=== PATIENT | female | born 1935 | race Caucasian/White ===

== ENCOUNTER 2016-10-22 18:12 | Emergency (ER) | payer MEDICARE ==
[~2016-10-22] VITALS: Ht 157.5 cm; Wt 70.3 kg
[2016-10-22 18:37] VITALS: BP 130/84; PULSE 62; RESP 12; TEMP 98.1; O2SAT 99
[2016-10-22] MEDS ORDERED: NACL 0.9% 1,000 ML IV ONE (18:37)
--- NOTE | 2016-10-22 18:55 | NUR ---
pt. placed in bed 5, assumed care
--- NOTE | 2016-10-22 19:00 | NUR ---
Dr. Coyne at bedside examining the pt.
--- NOTE | 2016-10-22 19:10 | NUR ---
Pt. to the ER via BLS for contipation for 2 days and abdominal pain 04/19, as per EMT pt. has a Hx of TIA, Parkinson's, lungs clear on auscultation, vitals WNL, Pulses WNL, soft abdomen, cap refil < 3 secs on all extremities, on campaign coordinator
[2016-10-22 19:20] LABS: BASOPHILS % (AUTO) 0.3 % (0.0-2.0); EOSINOPHILS # (AUTO) 0.1 K/uL (0.0-0.4); EOSINOPHILS % (AUTO) 0.8 % (0.0-4.0); HEMOGLOBIN 13.3 g/dL (12.0-16.0); LYMPHOCYTES # (AUTO) 1.1 K/uL (1.0-5.5); LYMPHOCYTES % (AUTO) 12.5 % (20.5-51.5); MEAN CORPUSCULAR HEMOGLOBIN 31 pg (27-31); MEAN CORPUSCULAR HGB CONC 35 % (32-36); MEAN CORPUSCULAR VOLUME 89 fL (79.0-98.0); MONOCYTES # (AUTO) 0.5 K/uL (0.0-1.0); MONOCYTES % (AUTO) 5.9 % (1.7-9.3); NEUTROPHILS # (AUTO) 7.1 K/uL (1.8-7.7); NEUTROPHILS % (AUTO) 80.5 % (40.0-70.0); PLATELET COUNT (AUTO) 261 K/uL (130-430); RED BLOOD CELL COUNT(AUTO) 4.27 MIL/uL (4.2-6.2); RED CELL DISTRIBUTION WIDTH 13.4 % (9.0-15.0); WHITE BLOOD COUNT (AUTO) 8.8 K/uL (4.8-10.8)
[2016-10-22 19:25] LABS: ANION GAP 11 (5-15); CHLORIDE 102 mmol/L (98-107); CREATININE 0.89 mg/dL (0.55-1.30); GLUCOSE 127 mg/dL (70-99); POTASSIUM 3.6 mmol/L (3.5-5.1); SODIUM SERUM 136 mmol/L (136-145); UREA NITROGEN, BLOOD 19 mg/dL (8-21)
[2016-10-22 19:30] LABS: TOTAL BILIRUBIN 0.6 mg/dL (0.0-1.0)
[2016-10-22 19:31] LABS: ALANINE AMINOTRANSFERASE 22 U/L (12-78); ALBUMIN 3.4 g/dL (3.4-4.8); ASPARTATE AMINOTRANSFERASE 19 U/L (10-37); LIPASE 203 U/L (73-393); TOTAL PROTEIN, SERUM 6.8 g/dL (6.4-8.3)
[2016-10-22] MEDS ORDERED: CARB-15 PO (19:39)
[2016-10-22] MEDS ORDERED: SENN8.6T19 PO (19:39)
[2016-10-22] MEDS ORDERED: TEMA15CA51 PO (19:39)
[2016-10-22] MEDS ORDERED: ATOR10TA68 PO (19:39)
[2016-10-22] MEDS ORDERED: HYDR-1189 PO (19:43)
[2016-10-22] MEDS ORDERED: SERT25TA77 PO (19:43)
[2016-10-22] MEDS ORDERED: VITD2000 PO (19:43)
[2016-10-22] MEDS ORDERED: LORA0.5T PO (19:43)
[2016-10-22] MEDS ORDERED: LISI-209 PO (19:43)
[2016-10-22] MEDS ORDERED: DOCU-144 PO (19:43)
[2016-10-22] MEDS ORDERED: CARB-61 PO (19:43)
--- NOTE | 2016-10-22 19:43 | NUR ---
Medication reconciliation completed with information provided by pt. Any prior medication reconciliation on file was reviewed and corrected.
--- NOTE | 2016-10-22 20:20 | NUR ---
Dr. Castro at bedside examining the pt.
[2016-10-22] MEDS ORDERED: CARB-62 PO (20:24)
[2016-10-22] MEDS ORDERED: ASPI-1063 PO (20:24)
--- NOTE | 2016-10-22 20:25 | NUR ---
Medication reconciliation completed with information provided by - PILL BOTTLES FROM FAMILY. Any prior medication reconciliation on file was reviewed and corrected.
[2016-10-22] MEDS ORDERED: NA PHOS,M-B/NA PHOS,DI-BA 118 ML (FLEET ENEMA) RC ONE (20:45)
[2016-10-22] MEDS ORDERED: MORPHINE 2 MG/ML INJ. SYRINGE IVP ONE (20:45)
[2016-10-22 21:00] VITALS: BP 111/62; PULSE 74; RESP 15; TEMP 98.1; O2SAT 99
--- NOTE | 2016-10-22 21:00 | NUR ---
Patient given written and verbal discharge instructions and verbalizes understanding. ER MD Dr. Castro discussed with patient the results and treatment provided. Patient in stable condition. ID arm band removed. IV catheter removed intact and dressing applied, no active bleeding. Rx of Mag Citrate given. Patient educated on pain management and to follow up with PMD. Pain Scale 0/10 Opportunity for questions provided and answered.
== END 2016-10-22 21:00 | disposition home or self-care (01) ==
LOC: SED 18:12
DX: K56.41 Fecal impaction (principal); R30.0 Dysuria; I10 Essential (primary) hypertension; F03.90 Unspecified dementia, unspecified severity, without behavioral disturbance, psychotic disturbance, mood disturbance, and anxiety; E78.00 Pure hypercholesterolemia, unspecified; F41.9 Anxiety disorder, unspecified; F32.9 Major depressive disorder, single episode, unspecified; G20 Parkinson's disease; Z86.73 Personal history of transient ischemic attack (TIA), and cerebral infarction without residual deficits; Z90.49 Acquired absence of other specified parts of digestive tract; Z90.710 Acquired absence of both cervix and uterus
CPT/HCPCS: 36415; 74176; 80053; 83690; 85025; 96361; 96374; 99285; J2270; J7030

== ENCOUNTER 2016-11-27 19:16 | Inpatient (IN) | payer MEDICARE ==
[~2016-11-27] VITALS: Ht 157.5 cm; Wt 69.9 kg
[~2016-11-27 19:16] MED LIST: ASPI-1063 PO; ATOR10TA68 PO; CARB-15 PO; CARB-61 PO; CARB-62 PO; DOCU-144 PO; HYDR-1189 PO; LISI-209 PO; LORA0.5T PO; SENN8.6T19 PO; SERT25TA77 PO; TEMA15CA51 PO; VITD2000 PO
--- NOTE | 2016-11-27 19:25 | NUR ---
Patient to ER bed 04 to gown for evaluation. Side rails up.
--- NOTE | 2016-11-27 19:30 | NUR ---
pt lethargic, brought in by daughter. per daughter, pt was c/o BLE pain due to recent falls. Daughter gave pt a [place] 5-325 at 1400, which pt does not usually take. At around 1500, daughter noticed pt was more difficult to arouse. MD joyce.
[2016-11-27 19:34] VITALS: BP 112/55; PULSE 68; RESP 16; TEMP 97.9; O2SAT 96
--- NOTE | 2016-11-27 19:50 | NUR ---
ER Dr. Sanabria at bedside examining patient.
[2016-11-27] MEDS ORDERED: NALOXONE HCL 0.4 MG/ML AMP (NARCAN) IVP ONE (20:00)
[2016-11-27 20:14] LABS: BASOPHILS % (AUTO) 0.5 % (0.0-2.0); EOSINOPHILS # (AUTO) 0.2 K/uL (0.0-0.4); EOSINOPHILS % (AUTO) 3.3 % (0.0-4.0); HEMATOCRIT 33.2 % (36-48); HEMOGLOBIN 11.6 g/dL (12.0-16.0); LYMPHOCYTES # (AUTO) 1.1 K/uL (1.0-5.5); LYMPHOCYTES % (AUTO) 18.1 % (20.5-51.5); MEAN CORPUSCULAR HEMOGLOBIN 32 pg (27-31); MEAN CORPUSCULAR HGB CONC 35 % (32-36); MEAN CORPUSCULAR VOLUME 91 fL (79.0-98.0); MONOCYTES # (AUTO) 0.4 K/uL (0.0-1.0); MONOCYTES % (AUTO) 6.9 % (1.7-9.3); NEUTROPHILS # (AUTO) 4.6 K/uL (1.8-7.7); NEUTROPHILS % (AUTO) 71.2 % (40.0-70.0); PLATELET COUNT (AUTO) 246 K/uL (130-430); RED BLOOD CELL COUNT(AUTO) 3.66 MIL/uL (4.2-6.2); RED CELL DISTRIBUTION WIDTH 12.9 % (9.0-15.0); WHITE BLOOD COUNT (AUTO) 6.3 K/uL (4.8-10.8)
[2016-11-27 20:24] LABS: ANION GAP 0 (5-15); CALCIUM 8.7 mg/dL (8.4-11.0); CHLORIDE 107 mmol/L (98-107); GLUCOSE 102 mg/dL (70-99); POTASSIUM 4.6 mmol/L (3.5-5.1); SODIUM SERUM 137 mmol/L (136-145); UREA NITROGEN, BLOOD 18 mg/dL (8-21)
[2016-11-27 20:26] LABS: SALICYLATE < 1 mg/dL (3-30)
[2016-11-27] MEDS ORDERED: NACL 0.9% 1,000 ML IV ONE (20:30)
[2016-11-27 20:31] LABS: ACETAMINOPHEN 1 ug/mL (1-30); ALANINE AMINOTRANSFERASE 12 U/L (12-78); ALBUMIN 2.9 g/dL (3.4-4.8); ASPARTATE AMINOTRANSFERASE 15 U/L (10-37); TOTAL BILIRUBIN 0.4 mg/dL (0.0-1.0)
[2016-11-27 20:32] LABS: ALCOHOL, BLOOD < 3 mg/dL (<10)
[2016-11-27 20:35] LABS: INR 0.9 (0.8-1.2); PROTHROMBIN TIME 9.9 SECS (9.5-12.5)
--- NOTE | 2016-11-27 20:40 | NUR ---
Medication reconciliation completed with information provided by Daughter. Any prior medication reconciliation on file was reviewed and corrected.
[2016-11-27] MEDS ORDERED: PRO20 PO (20:41)
[2016-11-27] MEDS ORDERED: CLOP75TA2 PO (20:41)
[2016-11-27 20:55] LABS: BILIRUBIN,URINE NEGATIVE (NEGATIVE); BLOOD, URINE NEGATIVE (NEGATIVE); CLARITY/URINE CLOUDY (CLEAR); COLOR,URINE YELLOW (YELLOW); GLUCOSE,URINE NEGATIVE (NEGATIVE); KETONES,URINE NEGATIVE (NEGATIVE); LEUKOCYTE ESTERASE ,URINE TRACE (NEGATIVE); NITRITE, URINE NEGATIVE (NEGATIVE); PROTEIN URINE TRACE (NEGATIVE); UROBILINOGEN,URINE 0.2 (0.2-1.0)
[2016-11-27 21:19] LABS: BARBITURATE, URINE NEGATIVE (NEG <=200); BENZODIAZEPINE, URINE POSITIVE (NEG <=150); CANNABINOID, URINE NEGATIVE (NEG <=50); COCAINE, URINE NEGATIVE (NEG <=150); METHAMPHETAMINES SCREEN,URINE NEGATIVE (NEG <=500); OPIATE, URINE POSITIVE (NEG <=100); PHENCYCLIDINE SCREEN,URINE NEGATIVE (NEG <=25); UR TRICYCLIC ANTIDEPRESSANTS NEGATIVE (NEG <=300); URINE AMPHETAMINE NEGATIVE (NEG <=500); URINE METHADONE NEGATIVE (NEG <=200); URINE OXYCODONE SCREEN NEGATIVE (NEG <=100); URINE PROPOXYPHENE SCREEN NEGATIVE (NEG <=300)
[2016-11-27 21:22] LABS: BACTERIA,URINE MANY /HPF (None Seen); MUCUS,URINE None Seen /LPF (None Seen); RBC,URINE NONE SEEN /HPF (0-3); URINE AMORPHOUS PHOSPHATES 3+ /HPF (None Seen); WBC,URINE 0-3 /HPF (0-3)
[2016-11-27 21:23] LABS: TRIPLE PHOSPHATE CRYSTAL,UR 0-10 /HPF (None Seen)
[2016-11-27] MEDS ORDERED: LORazepam 2 MG/ML VIAL (FOR ER USE) IVP ONE (22:45)
--- NOTE | 2016-11-27 22:45 | NUR ---
PT TRANSFERRED TO TELEMETRY VIA GURNEY ACCOMPANIED BY 2 RN AND EMT. PLACED ON HEART MONITOR FOR TRANSFER. NO S/S DISTRESS OR IV INFILTRATION. AND DAUGHTER AT BEDSIDE. PLACED IN BED 135, REPORT GIVEN TO STEVE GUERRERO. ALL CARE ENDORSED.
[2016-11-27] MEDS ORDERED: LORazepam 2 MG/ML VIAL (FOR ER USE) ONE (22:46)
--- NOTE | 2016-11-27 23:00 | NUR ---
ADMISSION NOTE Received patient from ER via gurney. Patient admitted with diagnosis of aloc. Patient is awake, alert, oriented X 1. Patient oriented to hospital room, call light, toileting, pain management and safety-teach back done. Patient informed that Nadira will be her nurse and that their room number is 105a. Personal belongings checked and Belongings List documented. Call light within reach.
[2016-11-27 23:38] VITALS: BP 131/108; PULSE 101; RESP 21; TEMP 98.2; O2SAT 96
[2016-11-27] MEDS: D5NS 1,000 ML IV SCH (23:56)
[2016-11-28] MEDS ORDERED: LORazepam 2 MG/ML VIAL IVP PRN (00:15)
[2016-11-28] MEDS ORDERED: PIPERACILLIN/TAZOBACTAM 3.375 GM/VIAL (ZOSYN) IV ONE (00:15)
--- NOTE | 2016-11-28 00:15 | NUR ---
Paged Dr. Desir, called back, new orders for Ativan IVP given for patient's anxiety.
[2016-11-28] MEDS: PIPERACILLIN/TAZO 3.375/DEX-IS 50 ML IV SCH ×4 (00:31→17:14)
--- NOTE | 2016-11-28 00:48 | NUR ---
RN ROUNDS Patient resting quietly in bed, no agitation noted, due antibiotics administered, IVF infusing, safety measures in place, will closely monitor.
--- NOTE | 2016-11-28 02:20 | NUR ---
RN ROUNDS Patient asleep, respirations even and unlabored, IVF infusing, safety measures in place, will closely monitor.
[2016-11-28 04:02] VITALS: BP 124/92; PULSE 97; RESP 18; TEMP 97.1; O2SAT 90
--- NOTE | 2016-11-28 04:29 | NUR ---
RN ROUNDS Patient resting quietly in bed, respirations even and unlabored, vitals signs stable, incontience care provided, repositioned for comfort, safety measures in place, will closely monitor.
--- NOTE | 2016-11-28 06:27 | NUR ---
RN ROUNDS Patient resting quietly in bed, respirations even and unlabored, in stable condition, repositioned for comfort, safety measures maintained, will closely monitor until report given to am nurse.
--- NOTE | 2016-11-28 07:43 | NUR ---
AM ROUNDS: No s/s of distress noted. Will continue to monitor.
[2016-11-28 08:37] VITALS: BP 128/89; PULSE 89; RESP 18; TEMP 97.3; O2SAT 94
--- NOTE | 2016-11-28 08:48 | NUR ---
Nutrition Update Jonathan Scale 17 noted. Pt admitted for ALOC. Diet: NPO BMI: 28.2 kg/m2 RD to follow per nutrition care standards.
[2016-11-28] MEDS: LACTOBACILLUS RHAMNOSUS GG 1 CAP CAPSULE PO SCH ×2 (09:00→20:28)
--- NOTE | 2016-11-28 09:34 | NUR ---
CONSULT NEUROLOGY CONFUSION DR ANN [phone] S/W MARK OFFICE @ 2102
--- NOTE | 2016-11-28 10:00 | NUR ---
PATIENT RESTING: Patient resting quietly. No acute distress noted. Vital signs within normal range.
[2016-11-28 10:14] LABS: ABG TOTAL HEMOGLOBIN 12.4 G/dL (12.0-18.0); BLOOD GAS BASE EXCESS -1.9 mmol/L (-3.0-3.0); BLOOD GAS COHb% 0.3 % (0.5-1.5); BLOOD GAS HHB 4.2 % (0.0-6.0); BLOOD GAS PH 7.412 (7.350-7.450); BLOOD O2Hb% 95.2 % (94.0-97.0)
[2016-11-28 12:00] VITALS: BP 148/55; PULSE 88; RESP 18; TEMP 97.8; O2SAT 98
--- NOTE | 2016-11-28 12:01 | NUR ---
PATIENT RESTING: Patient resting quietly. No acute distress noted. Vital signs within normal range.
[2016-11-28] MEDS: D5NS 1,000 ML IV SCH (13:19)
--- NOTE | 2016-11-28 14:30 | NUR ---
PATIENT RESTING: Patient resting quietly. No acute distress noted. Vital signs within normal range.
[2016-11-28 15:29] VITALS: BP 162/81; PULSE 78; RESP 16; TEMP 96.9; O2SAT 95
[2016-11-28] MEDS: ENALAPRILAT DIHYDRATE 1.25 MG/ML VIAL IVP PRN (16:12)
--- NOTE | 2016-11-28 16:16 | NUR ---
PATIENT RESTING: Patient resting quietly. No acute distress noted. Vital signs within normal range.
--- NOTE | 2016-11-28 18:17 | NUR ---
CLOSING NOTE: All needs met. No change in assessment. Will endorse to NOC shift nurse.
--- NOTE | 2016-11-28 19:30 | NUR ---
INITIAL NOTE: Patient stable and resting comfortably in bed. Breathing evenly and regularly on RA with no difficulties. Patient non responsive and ALOC. Vital signs stable and WNL. Skin intact with no discolorations noted. patient incontinent. Bed in lowest position, call light within reach, and break on. Will continue to monitor the patient frequently throughout the shift.
--- NOTE | 2016-11-28 21:30 | NUR ---
RN Rounds: Patient stable and sleeping comfortably in bed. No response or movement noted. Held medications per NPO. Cleaned and respositioned. Will continue to monitor patient frequently; bed in lowest position, call light within reach, and break on.
[2016-11-28 23:04] VITALS: BP 145/76; PULSE 78; RESP 16; TEMP 97.9; O2SAT 98
--- NOTE | 2016-11-28 23:45 | NUR ---
RN Rounds: Patient continuing to sleep in bed. Turned and repositioned. Patient clean and linens dry. Bed in lowest position, call light within reach, and break on. Will continue to monitor patient throughout the shift.
--- NOTE | 2016-11-28 23:59 | NUR ---
PATIENT HAND OFF: Patient given to Jeanine RN. Patient stable and sleeping comfortably in bed. No changed throughout the shift.
[2016-11-29] VITALS: BP 173/85; PULSE 77; RESP 16; TEMP 99.1; O2SAT 96
--- NOTE | 2016-11-29 | NUR ---
RESUMED CARE FROM LANEY -Pt is resting in bed. No s/s any acute distress noted. All safety measures in place. Fall precaution in place. Call light w/in reach. Continue to monitor pt.
[2016-11-29] MEDS: PIPERACILLIN/TAZO 3.375/DEX-IS 50 ML IV SCH ×4 (00:22→17:49)
[2016-11-29] MEDS: ENALAPRILAT DIHYDRATE 1.25 MG/ML VIAL IVP PRN ×2 (00:38→08:33)
--- NOTE | 2016-11-29 01:00 | NUR ---
COMPUTER SYSTEM IS DOWN FROM [phone]. SEE PAPER FOR CHARTING.
[2016-11-29] MEDS: D5NS 1,000 ML IV SCH (05:36)
--- NOTE | 2016-11-29 05:36 | NUR ---
ROUNDS; -Pt is resting in bed. No s/s any acute distress noted. Infusing Antibotic. No s/s any infiltration noted. All safety measures in place. Fall precaution in place. Call light w/in reach. Continue to monitor pt.
--- NOTE | 2016-11-29 07:30 | NUR ---
CLOSING NOTES; -Pt is resting in bed. No s/s any acute distress noted. IV site of rac patent, no s/s any infiltration noted. All safety measures in place. Fall precaution in place. Call light w/in reach. Endorsed to oncoming nurse to continue care.
[2016-11-29 08:00] VITALS: BP 173/109; PULSE 74; RESP 18; TEMP 97.8; O2SAT 96
--- NOTE | 2016-11-29 08:00 | NUR ---
NOTE PT HAS HER EYES CLOSED. WILL OPEN HER EYES WHEN SPOKEN TO. PT DOES NOT RESPOND BUT OPENS HER EYES WHEN AWAKENED. NO SOB/RESP DISTRESS OR PAIN/DISCOMFORT NOTED AT THIS TIME. CALL LIGHT WITHIN REACH. IVF'S INFUSING THROUGH RIGHT AC IV SITE AT THIS TIME. PT IS NPO AT THIS TIME.
[2016-11-29] MEDS: LACTOBACILLUS RHAMNOSUS GG 1 CAP CAPSULE PO SCH ×2 (08:31→21:22)
--- NOTE | 2016-11-29 08:35 | NUR ---
NOTE DR JEFFREY ON THE FLOOR AND ASSESSMENT COMPLETED. PT'S DAUGHTER SHMUEL ON THE FLOOR AND SPOKE TO DR JEFFREY ABOUT PT EATING. SPEECH EVAL TO BE DONE TODAY.
--- NOTE | 2016-11-29 09:38 | NUR ---
CONSULT SWALLOW LALITO S/W [facility] () [phone] @ 3415
[2016-11-29 10:18] VITALS: Ht 157.5 cm; Wt 69.9 kg
--- NOTE | 2016-11-29 12:00 | NUR ---
NOTE PT'S AT BEDSIDE. WANTS TO FEED PT. EXPLAINED TO PT'S THAT SPEECH EVAL WAS ORDERED AND HAS TO BE COMPLETED TO SEE IF PT CAN SWALLOW WITHOUT ASPIRATING. NO NEEDS NOTED. PT HAS HER EYES CLOSED AND OPENS FOR HER AND RESPONDS TO 'S QUESTIONS. CALL LIGHT WITHIN REACH. PTHAS BEEN NEXT TO NURSES' STATION ALL SHIFT UNDER CLOSE OBSERVATION.
--- NOTE | 2016-11-29 12:10 | NUR ---
Social Service Note: Pt referred to nephrology social worker by field nurse case manager to speak with pt's dtr about possible resources for help at home. BAND MANAGER placed call to pt's dtr, Chuyita ([phone]). Chuyita states that she had most of her questions answered by field nurse case manager yesterday. BAND MANAGER reminded Chuyita that BAND MANAGER was available for support should further needs arise. BAND MANAGER will remain available and will follow up as needed.
[2016-11-29 12:39] VITALS: BP 124/58; PULSE 74; RESP 17; TEMP 97.3; O2SAT 98
--- NOTE | 2016-11-29 14:30 | NUR ---
NOTE [facility] - SPEECH THERAPIST AT BEDSIDE AND SWALLOW EVAL WAS COMPLETED. PT CAN TOLERATE MECHANICAL SOFT DIET THAT IS FINELY CHOPPED. DR JEFFREY CALLED AND NOTIFIED. PT'S NOW AT BEDSIDE ONCE AGAIN.
--- NOTE | 2016-11-29 15:19 | NUR ---
S.T. SWALLOW EVAL COMPLETED. PT PRESENTS W/ ML OROPHARYNGEAL DYSPHAGIA W/ ML PROLONGED MASTICATION AND ML DELAYED SWALLOW AT TIMES. NO S/S OF ASPIRATION. REC: [facility] SOFT FINELY CHOPPED DIET. NURSE IONA NOTIFIED. [id number] CJ [id number] CJ [id number] CJ NOMS LEVEL 5
[2016-11-29 16:53] VITALS: BP 156/83; PULSE 74; RESP 17; TEMP 98.6; O2SAT 98
--- NOTE | 2016-11-29 17:10 | NUR ---
NOTE PT'S DAUGHTER AT BEDSIDE AT THIS TIME AND FEEDING PT WATER IN SLOW SIPS. PT RESPONDS TO QUESTIONS A LITTLE MORE AT THIS TIME. NO SOB/RESP DISTRESS OR PAIN/DISCOMFORT NOTED AT THIS TIME. IVF'S INFUSING WELL THROUGH RIGHT AC IV SITE AT THIS TIME. CALL LIGHT WITHIN REACH.
--- NOTE | 2016-11-29 18:30 | NUR ---
NOTE PT'S DAUGHTER FED PT HER MECHANICAL SOFT/FINELY CHOPPED DINNER. PT TOLERATED DIET WELL. IVF'S INFUSING WELL THROUGH RIGHT AC IV SITE. NO SOB/RESP DISTRESS OR PAIN/DISCOMFORT NOTED AT THIS TIME. PT WAS MAINTAINED WITH SAFETY PRECAUTIONS ALL SHIFT. PT WAS CHECKED ON Q1' AND PRN FOR NEEDS AND CARE. CALL LIGHT WITHIN REACH.
--- NOTE | 2016-11-29 19:40 | NUR ---
OPENING NOTES PATIENT IS A/OX1. PATIENT RESPONSE TO NAME AND LIGHT STIMULI. VITAL SIGNS ARE STABLE. NO SIGNS OF DISTRESS. BREATHING IS NON LABORED. IV IS PATENT AND SHOWS NO SIGNS OF COMPLICATION. PER , PATIENT HAD A STROKE 3YRS AGO THAT LEFT HER SPEECH IMPAIRED. PATIENT INSTRUCTED TO CALL FOR ASSISTANCE. BED ALARM IS ON. CALL LIGHT IS WITHIN REACH. BED ALARM IS ON. SAFETY MEASURES ARE IN PLACE. WILL CONTINUE TO MONITOR.
[2016-11-29 20:05] VITALS: BP 151/81; PULSE 82; RESP 18; TEMP 99; O2SAT 98
--- NOTE | 2016-11-29 21:20 | NUR ---
ROUNDS. PATIENT WAS GIVEN APPLE SAUCE AND WATER. PATIENT IS IN BED RESTING COMFORTABLY. CALL LIGHT IS WITHIN REACH. BED ALARM IS ON. WILL CONTINUE TO MONITOR.
--- NOTE | 2016-11-29 23:05 | NUR ---
ROUNDS PATIENT IS IN BED SLEEPING. NO SIGNS OF DISTRESS. BREATHING IS NON LABORED. WILL CONTINUE TO MONITOR. SAFETY MEASURES ARE IN PLACE.
[2016-11-30] MEDS: PIPERACILLIN/TAZO 3.375/DEX-IS 50 ML IV SCH ×4 (00:14→17:16)
[2016-11-30] MEDS: D5NS 1,000 ML IV SCH ×3 (00:15→21:43)
[2016-11-30 00:48] VITALS: BP 150/83; PULSE 77; RESP 18; TEMP 97.9; O2SAT 97
--- NOTE | 2016-11-30 01:31 | NUR ---
ROUNDS PATIENT IS IN BED SLEEPING. BREATHING IS NON LABORED. NO SIGNS OF DISTRESS. BED ALARM IS ON. WILL CONTINUE TO MONITOR.
--- NOTE | 2016-11-30 03:30 | NUR ---
ROUNDS PATIENT IS IN BED SLEEPING. SOFT MUSIC IS PLAYING. NO SIGNS OF DISTRESS. BREATHING IS NON LABORED. NO SIGNS OF DISTRESS. BED ALARM IS ON. WILL CONTINUE TO MONITOR.
[2016-11-30 04:00] VITALS: BP_SYST 106; BP_SYST 175; BP_DIAS 53; BP_DIAS 94; PULSE 79; RESP 16; TEMP 97.2; TEMP 98; O2SAT 97
[2016-11-30] MEDS: ENALAPRILAT DIHYDRATE 1.25 MG/ML VIAL IVP PRN (04:23)
--- NOTE | 2016-11-30 06:35 | NUR ---
CLOSING NOTES PATIENT IS IN BED RESTING COMFORTABLY. NO SIGNS OF DISTRESS. BREATHING IS NON LABORED. CALL LIGHT IS WITHIN REACH. BED ALARM IS ON. WILL ENDORSE CARE TO THE MORNING NURSE.
[2016-11-30 08:00] VITALS: BP 150/87; PULSE 76; RESP 18; TEMP 97.8; O2SAT 97
--- NOTE | 2016-11-30 08:00 | NUR ---
NOTE PT SLEEPING IN BED AND WILL NOT OPEN HER EYES AT THIS TIME. NO SOB/RESP DISTRESS OR PAIN/DISCOMFORT NOTED AT THIS TIME. IVF'S INFUSING WELL THROUGH RT. FOREARM IV SITE. PT NEXT TO NURSES' STATION UNDER CLOSE OBSERVATION. CALL LIGHT WITHIN REACH.
[2016-11-30] MEDS: LACTOBACILLUS RHAMNOSUS GG 1 CAP CAPSULE PO SCH ×2 (08:39→21:00)
--- NOTE | 2016-11-30 10:13 | NUR ---
Social Service Note: FIRE APPARATUS ENGINEER received order for hospice evaluation. FIRE APPARATUS ENGINEER placed call to pt's dtr, Alondrasaranya ([phone]); Chuyita states that she spoke to the physician this morning and is agreeable to a hospice evaluation. Chuyita states that the physician recommended [facility] and she is agreeable to having [facility] complete the evaluation. FIRE APPARATUS ENGINEER has faxed order and pt's information to [facility] for the evaluation. Sofi (p.[phone] f.[phone]).
[2016-11-30 10:22] LABS: ANION GAP 5 (5-15); CALCIUM 8.6 mg/dL (8.4-11.0); CHLORIDE 106 mmol/L (98-107); CREATININE 1.04 mg/dL (0.55-1.30); GLUCOSE 120 mg/dL (70-99); POTASSIUM 3.8 mmol/L (3.5-5.1); SODIUM SERUM 138 mmol/L (136-145); UREA NITROGEN, BLOOD 12 mg/dL (8-21)
[2016-11-30 10:27] LABS: ALANINE AMINOTRANSFERASE 24 U/L (12-78); ALBUMIN 2.7 g/dL (3.4-4.8); ASPARTATE AMINOTRANSFERASE 17 U/L (10-37); TOTAL BILIRUBIN 0.8 mg/dL (0.0-1.0); TOTAL PROTEIN, SERUM 5.7 g/dL (6.4-8.3)
[2016-11-30 11:50] VITALS: BP 159/74; PULSE 76; RESP 18; TEMP 96.5; O2SAT 96
--- NOTE | 2016-11-30 12:00 | NUR ---
NOTE PT'S DAUGHTER SHMUEL WAS ON THE FLOOR AT 09AM, SHE WAS ABLE TO SPEAK TO DR JEFFREY AND QUESTIONS/CONCERNS WERE ANSWERED AT THIS TIME. PT'S DAUGHTER ALSO ATTEMPTED TO FEED HER MOTHER BREAKFAST AT THIS TIME. NO NEEDS NOTED AT THIS TIME. CALL LIGHT WITHIN REACH. 1055AM - ОЛЕГ FROM [employer] CALLED FOR TRYING TO TRACK DOWN PT'S DAUGHTER TO GET INFORMATION FROM HER. MESSAGE LEFT. [phone]. (24HR #).
--- NOTE | 2016-11-30 14:45 | NUR ---
NOTE PT WAS EVALUATED BY [facility] (STAND GRINDER FROM [employer]). PT'S DAUGHTER SHMUEL IN THE ROOM WELL. QUESTIONS/CONCERNS WERE ANSWERED BY SHMUEL FROM [facility] - ABOUT THE HOSPICE CARE AT HOME THAT IS BEING SET UP - UPON DISCHARGE FROM THE HOSPITAL. NO NEEDS NOTED. CALL LIGHT WITHIN REACH.
--- NOTE | 2016-11-30 16:35 | NUR ---
NOTE PT'S DAUGHTER SHMUEL AND DARA NATALIYA VASQUEZ AT BEDSIDE DISCUSSING HOME HEALTH/HOSPICE CARE. NO NEEDS NOTED AT THIS TIME. CALL LIGHT WITHIN REACH.
[2016-11-30 17:03] VITALS: BP 156/101; PULSE 75; RESP 20; TEMP 97.5; O2SAT 96
--- NOTE | 2016-11-30 18:30 | NUR ---
NOTE PT'S IN THE ROOM ASSISTING PT IN EATING HER DINNER. PT WAS CHECKED ON Q1' AND PRN ALL SHIFT FOR NEEDS AND CARE. PT WAS MAINTAINED WITH SAFETY PRECAUTIONS ALL SHIFT. NO SOB/RESP DISTRESS OR PAIN/DISCOMFORT NOTED. IVF'S INFUSING THROUGH RT. FOREARM IV SITE. CALL LIGHT WITHIN REACH.
--- NOTE | 2016-11-30 20:00 | NUR ---
opening note received patient resting in bed with eyes closed. opens eyes to soft touch. no s/s distress. iv to right ac d5ns@70ml/h. comm board updated. bed low and locked. repositioned pt to side with pillow.
--- NOTE | 2016-11-30 22:30 | NUR ---
rounds pt incontinent of urine. cleaned and repositioned pt with luggage repairer assist.
--- NOTE | 2016-12-01 | NUR ---
rounds repositioned with pillow support. iv fluid infusing well to right arm. safety precautions in place
[2016-12-01 00:01] VITALS: BP 160/78; PULSE 83; RESP 18; TEMP 98.1; O2SAT 96
[2016-12-01] MEDS: PIPERACILLIN/TAZO 3.375/DEX-IS 50 ML IV SCH ×4 (00:09→17:53)
[2016-12-01] MEDS: ENALAPRILAT DIHYDRATE 1.25 MG/ML VIAL IVP PRN (03:04)
[2016-12-01 04:11] VITALS: BP 153/88; PULSE 76; RESP 18; TEMP 97.6; O2SAT 96
--- NOTE | 2016-12-01 04:18 | NUR ---
rounds pt appears to be sleeping. respirations even and unlabored. bp 158/88. repositioned for comfort and safety.
--- NOTE | 2016-12-01 06:44 | NUR ---
notes pt continues to rest. no changes noted. pt still lethargic. no s/s distress. repositioned for comfort and safety.
[2016-12-01 08:00] VITALS: BP 95/47; PULSE 69; RESP 16; TEMP 98; O2SAT 96
--- NOTE | 2016-12-01 08:00 | NUR ---
OPENING NOTE PATIENT IS OBTUNDED, RESPONDS MINIMALLY TO NOXIOUS STIMULI. PT IS BREATHING DEEPLY AND HEAVILY SUCH WHEN SLEEPING. PUPILS 3MM BRISK, PERRL
[2016-12-01] MEDS: LACTOBACILLUS RHAMNOSUS GG 1 CAP CAPSULE PO SCH (09:00)
--- NOTE | 2016-12-01 09:00 | NUR ---
DAUGHTER AT BEDSIDE STATES HER MOTHER IS OFTEN THIS SLEEPY/OBTUNDED FOR MOST OF THE DAY.
--- NOTE | 2016-12-01 10:26 | NUR ---
SPOKE [facility] WHO WILL CALL BACK TO CONFIRM TRANSPORTATION ARRANGEMENTS
[2016-12-01 10:51] VITALS: BP 95/47; PULSE 69; RESP 15; TEMP 97; O2SAT 96
--- NOTE | 2016-12-01 11:30 | NUR ---
, PT PHYSICAL THERAPY CO-SIGN The Physical Therapy Progress Notes documented by Cobbler Apprentice have been reviewed. Reviewed/Co-Signed by: Jannette Alonso, PT Documentation Done by: Samir Taveras PTA I concur with the documentation of this SENIOR FINANCIAL REPORTING ACCOUNTANT. Plan: continue PT as per plan of care. Addendum: 12/01/16 at 1536 by Jannette Alonso PT Amended: Links added.
[2016-12-01 12:07] VITALS: BP 144/77; PULSE 69; RESP 20; TEMP 98.6; O2SAT 95
--- NOTE | 2016-12-01 12:30 | NUR ---
rn from [facility] at bedside for eval. requesting IGLES[place] and order fo dc home w hospice
[2016-12-01] MEDS: D5NS 1,000 ML IV SCH (13:19)
--- NOTE | 2016-12-01 13:48 | NUR ---
is at bedside
--- NOTE | 2016-12-01 15:06 | NUR ---
DC PLANNING: PAT FROM [facility] EVALUATED THE PATIENT AND EXPLAINED TO THE FAMILY WHAT SERVICE THEY OFFER. FAMILY SIGNED CONSENT AND WILL BE DISCHARGING THE PATIENT TO HOME W/ HOSPICE. CALLED VINCE HORTON @ [facility] TEL# [phone], INFORMED HER ABOUT THE PLAN, INSTRUCTED TO USE [facility].
[2016-12-01 16:31] VITALS: BP 149/86; PULSE 81; RESP 21; TEMP 98.1; O2SAT 97
--- NOTE | 2016-12-01 17:00 | NUR ---
PT CLEANED OF STOOL AND URINE. CHANGED IN TO TRANSPORT GARMENTS. AND CAREGIVER REMAIN AT BEDSIDE. DC INSTRUCTIONS GIVEN TO FAMILY. VERBALIZED UNDERSTANDING OF FOLLOW UP CARE. IV DC'D AND PRESSURE DRESSING APPLIED. BLEEDING CONTROLLED.
--- NOTE | 2016-12-01 18:06 | NUR ---
DC PAPERWORK GIVEN TO PT'S DAUGHTER AND SIGNED. ALL DC INSTRUCTIONS GIVEN AND EXPLAINED, DAUGHTER VERBALIZED UNDERSTANDING. STATES SHE WILL WAIT AT BEDSIDE UNTIL ABMULANCE ARRIVES TO TAKE HER MOTHER HOME
--- NOTE | 2016-12-01 19:25 | NUR ---
OPENING NOTES REPORT RECEIVED FROM DAY SHIFT NURSE AT BEDSIDE. NO SIGNS OR SYMPTOMS OF DISTRESS NOTED, PATIENT RESTING COMFORTABLY. DAUGHTER UPSET THAT AMBULANCE HAS NOT ARRIVED. WILL CONTACT AMBULANCE COMPANY TO VERIFY THAT THEY WILL ARRIVE AT 1930 STATED. BED IN LOWEST POSITION, BED ALARM ON, CALL LIGHT WITHIN REACH WILL CONTINUE TO MONITOR.
--- NOTE | 2016-12-01 20:50 | NUR ---
D/C Patient Patient's family given medication reconciliation form and D/C instructions. Exit Care provided. Patient's family verbalized understanding due to patients mentation. MD discussed with patient's family the results and treatment provided. discharge to home with hospice via [facility]. Patient in stable condition, ID band removed. IV catheter removed, intact and dressing applied, no active bleeding. Patient's family educated on pain management and patient safety. All belongings sent with patient.
== END 2016-12-01 20:50 | disposition hospice, home (50) | DRG 56 ==
LOC: SED 19:16 → STU 22:29 → SMU 11-28 20:21
PROVIDERS: ADMIT Internal Medicine Hospice and Palliative Medicine; ATTEND Internal Medicine Hospice and Palliative Medicine
DX: G20 Parkinson's disease (principal); G93.40 Encephalopathy, unspecified; E43 Unspecified severe protein-calorie malnutrition; I10 Essential (primary) hypertension; F03.90 Unspecified dementia, unspecified severity, without behavioral disturbance, psychotic disturbance, mood disturbance, and anxiety; E78.00 Pure hypercholesterolemia, unspecified; F41.9 Anxiety disorder, unspecified; F32.9 Major depressive disorder, single episode, unspecified; Z86.73 Personal history of transient ischemic attack (TIA), and cerebral infarction without residual deficits; Z68.28 Body mass index [BMI] 28.0-28.9, adult
CPT/HCPCS: 36415; 36600; 70450-TC; 71010; 80053; 80307; 81000-TC; 82607; 82803-TC; 82962; 84443-TC; 84484; 85025; 85610-TC; 85730-TC; 87086; 92610-GN; 93005; 96374; 96375; 97110-GP; 97116-GP; 97530-GP; 99285; G0480; G0481; G0482; J2060; J2310; J2543; J7030; J7042; J7060

== ENCOUNTER 2019-08-19 15:35 | Emergency (ER) | payer MEDICARE ==
[~2019-08-19] VITALS: Ht 167.6 cm; Wt 63.5 kg
[~2019-08-19 15:35] MED LIST changes: -ASPI-1063 PO; +ASPI-1153 PO; -CARB-15 PO; -CARB-61 PO; +CLOP75TA2 PO; -DOCU-144 PO; +PRO20 PO; -SERT25TA77 PO; +TEMA15CA5 PO; -TEMA15CA51 PO
[2019-08-19 15:40] VITALS: BP_SYST 94
--- NOTE | 2019-08-19 15:40 | NUR ---
Patient to ER bed 02 to gown for evaluation. Side rails up. Report given to YOLANDA BRADLEY
--- NOTE | 2019-08-19 15:41 | NUR ---
Patient brought in via EMS from home. Patient is nonverbal, contractures to left hand, right leg. Daughter is at bedside, states patient was hypotensive and pale, patient was rolled over and color returned.
--- NOTE | 2019-08-19 15:53 | NUR ---
ER Dr. Leija at bedside examining patient.
[2019-08-19 16:36] LABS: BASOPHILS % (AUTO) 0.7 % (0.0-2.0); EOSINOPHILS # (AUTO) 0.2 K/uL (0.0-0.4); EOSINOPHILS % (AUTO) 3.1 % (0.0-4.0); HEMATOCRIT 42.3 % (36-48); HEMOGLOBIN 14.1 g/dL (12.0-16.0); LYMPHOCYTES # (AUTO) 1.6 K/uL (1.0-5.5); LYMPHOCYTES % (AUTO) 24.2 % (20.5-51.5); MEAN CORPUSCULAR HEMOGLOBIN 31 pg (27-31); MEAN CORPUSCULAR HGB CONC 33 % (32-36); MEAN CORPUSCULAR VOLUME 93 fL (79.0-98.0); MONOCYTES # (AUTO) 0.4 K/uL (0.0-1.0); MONOCYTES % (AUTO) 6.6 % (1.7-9.3); NEUTROPHILS # (AUTO) 4.2 K/uL (1.8-7.7); NEUTROPHILS % (AUTO) 65.4 % (40.0-70.0); PLATELET COUNT (AUTO) 230 K/uL (130-430); RED BLOOD CELL COUNT(AUTO) 4.56 MIL/uL (4.2-6.2); WHITE BLOOD COUNT (AUTO) 6.5 K/uL (4.8-10.8)
[2019-08-19 16:51] LABS: ANION GAP 6 (5-15); CALCIUM 9.1 mg/dL (8.4-11.0); CHLORIDE 105 mmol/L (98-107); CREATININE 0.45 mg/dL (0.55-1.30); GLUCOSE 98 mg/dL (70-99); POTASSIUM 4.4 mmol/L (3.5-5.1); PROTHROMBIN TIME 9.9 SECS (9.5-12.5); SODIUM SERUM 135 mmol/L (136-145); UREA NITROGEN, BLOOD 25 mg/dL (8-21)
[2019-08-19 17:04] LABS: ALANINE AMINOTRANSFERASE 19 U/L (12-78); ALBUMIN 2.6 g/dL (3.4-4.8); ASPARTATE AMINOTRANSFERASE 26 U/L (10-37); TOTAL BILIRUBIN 0.4 mg/dL (0.0-1.0)
[2019-08-19 17:06] LABS: ALCOHOL, BLOOD < 3 mg/dL (<10)
[2019-08-19 17:10] LABS: BILIRUBIN,URINE NEGATIVE (NEGATIVE); BLOOD, URINE NEGATIVE (NEGATIVE); CLARITY/URINE CLEAR (CLEAR); COLOR,URINE YELLOW (YELLOW); GLUCOSE,URINE NEGATIVE (NEGATIVE); KETONES,URINE NEGATIVE (NEGATIVE); LEUKOCYTE ESTERASE ,URINE NEGATIVE (NEGATIVE); NITRITE, URINE NEGATIVE (NEGATIVE); PROTEIN URINE NEGATIVE (NEGATIVE); UROBILINOGEN,URINE 0.2 (0.2-1.0)
[2019-08-19] MEDS ORDERED: CAT.1 PO (17:20)
[2019-08-19] MEDS ORDERED: LACT10SO6 PO (17:20)
--- NOTE | 2019-08-19 17:20 | NUR ---
Medication reconciliation completed with information provided by patient's daughter. Any prior medication reconciliation on file was reviewed and corrected.
[2019-08-19 17:21] LABS: BARBITURATE, URINE NEGATIVE (NEG <=200); BENZODIAZEPINE, URINE NEGATIVE (NEG <=150); CANNABINOID, URINE NEGATIVE (NEG <=50); COCAINE, URINE NEGATIVE (NEG <=150); METHAMPHETAMINES SCREEN,URINE NEGATIVE (NEG <=500); OPIATE, URINE NEGATIVE (NEG <=100); PHENCYCLIDINE SCREEN,URINE NEGATIVE (NEG <=25); UR TRICYCLIC ANTIDEPRESSANTS NEGATIVE (NEG <=300); URINE AMPHETAMINE NEGATIVE (NEG <=500); URINE METHADONE NEGATIVE (NEG <=200); URINE OXYCODONE SCREEN NEGATIVE (NEG <=100); URINE PROPOXYPHENE SCREEN NEGATIVE (NEG <=300)
[2019-08-19] MEDS ORDERED: NS 500 ML IV ONE (17:45)
--- NOTE | 2019-08-19 17:55 | NUR ---
Dietary called for dinner tray.
--- NOTE | 2019-08-19 18:15 | NUR ---
Patient's daughter, Chuyita, called at . Left voice mail.
--- NOTE | 2019-08-19 18:59 | NUR ---
Called patient's family at , left voicemail.
--- NOTE | 2019-08-19 19:07 | NUR ---
Report given to YOLANDA Alexander for continuation of care.
--- NOTE | 2019-08-19 20:00 | NUR ---
Pt family signed Discharge paperwork, LEft ED to go home and prepare hospital bed at home for patient.
--- NOTE | 2019-08-19 20:43 | NUR ---
. Pt daughter, Chuyita Mckeon, would like to be informed when pt transfers out of ED.
[2019-08-19 21:20] VITALS: BP_SYST 124
--- NOTE | 2019-08-19 21:20 | NUR ---
Patient Family given written and verbal discharge instructions and verbalizes understanding. ER MD discussed with patient and family the results and treatment provided. Patient in stable condition. ID arm band removed. IV catheter removed intact and dressing applied, no active bleeding. No RX given. Patient educated on pain management and to follow up with PMD. Pain Scale 0/10. Opportunity for questions provided and answered.
--- NOTE | 2019-08-19 21:20 | NUR ---
Attempted to call pt family and let them know that patient has been transported. No answer
--- NOTE | 2019-08-19 21:20 | NUR ---
Report Given to EMT's [place], and Markos
== END 2019-08-19 21:20 | disposition home or self-care (01) ==
LOC: SED 15:35
DX: R79.89 Other specified abnormal findings of blood chemistry (principal); E86.0 Dehydration; I10 Essential (primary) hypertension; F41.9 Anxiety disorder, unspecified; F32.9 Major depressive disorder, single episode, unspecified; E78.00 Pure hypercholesterolemia, unspecified; G45.9 Transient cerebral ischemic attack, unspecified; F03.90 Unspecified dementia, unspecified severity, without behavioral disturbance, psychotic disturbance, mood disturbance, and anxiety; Z79.82 Long term (current) use of aspirin; Z79.899 Other long term (current) drug therapy; Z91.018 Allergy to other foods
CPT/HCPCS: 36415; 71045; 74018; 80053; 80307; 81003; 82140; 83605; 83880; 84439; 84484; 85025; 85610; 87040; 93005; 96360; 99284; G0482; J7040